=== PATIENT | female | born 1980 | race Caucasian/White ===

== ENCOUNTER → 2021-09-22 | Outpatient (CLI) | payer BC ==
[~2021-09-22] MED LIST: ACHD5005 PO; FRS325T PO; IBP600T1 PO; MUPI22OI2; NORG1TAB31; OCP; OXYC-12 PO; PREN1TAB39 PO; SULF-222
--- NOTE | 2021-09-22 11:52 | Diagnostic Imaging Report ---
Indication: Routine screening. No prior mammograms are available for comparison. This a baseline study. 2-D and 3-D bilateral screening mammography was performed with CAD. CAD is utilized. The current study was also evaluated with a Computer Aided Detection (CAD) system. Scattered fibroglandular densities are identified bilaterally. A probable intramammary lymph node in the outer left breast is noted. No spiculated mass or malignant-appearing microcalcifications are seen. Axillae are unremarkable. IMPRESSION: BI-RADS Category 2 No mammographic features suspicious for malignancy are identified. ACR BI-RADS Category 2: Benign findings. Result letter will be mailed to the patient. Note: At least 10% of breast cancer is not imaged by mammography. Dictated by: Dictated on workstation # [id number]
== END ==
LOC: RAD 07:30
PROVIDERS: ATTEND Nurse Practitioner Family
DX: Z12.31 Encounter for screening mammogram for malignant neoplasm of breast (principal)
CPT/HCPCS: 77063; 77067

== ENCOUNTER → 2022-11-01 | Outpatient (CLI) | payer BC ==
--- NOTE | 2022-11-01 14:52 | Diagnostic Imaging Report ---
PROCEDURE: Pelvic comp/transvaginal sonogram. TECHNIQUE: Complete transabdominal and transvaginal pelvic ultrasound was performed. In addition, limited pelvic Doppler was performed. INDICATION: Menorrhagia. FINDINGS: The uterus is anteverted measuring 9.4 x 5.2 x 5.7 cm. There is some heterogeneity to the myometrium but no discrete myometrial mass is identified. The endometrium is 13 mm in thickness. The right ovary measures 4.9 x 2.5 x 2.7 cm and the left ovary measures 3.2 x 1.6 x 2.7 cm. The right ovary does contain a hemorrhagic cyst measuring approximately 2.1 cm in size. There is blood flow to both ovaries. No free fluid is detected. IMPRESSION: Hemorrhagic 2.1 cm right ovarian cyst. No other significant abnormality is detected. Dictated by: Dictated on workstation # [id number]
== END ==
LOC: RAD 11:27
PROVIDERS: ATTEND Obstetrics & Gynecology
DX: N83.201 Unspecified ovarian cyst, right side (principal)
CPT/HCPCS: 76830; 76856